=== PATIENT | female | born 1955 | race Caucasian/White ===

== ENCOUNTER → 2020-06-28 08:52 | Outpatient (BNVA) | payer MEDICAID, SELFPAY | PROVIDERS: Family Provider Nurse Practitioner Family; PCP Nurse Practitioner Family; Visit Provider Registered Nurse | DX: I10 Essential (primary) hypertension (principal); E11.9 Type 2 diabetes mellitus without complications; E78.5 Hyperlipidemia, unspecified; E11.40 Type 2 diabetes mellitus with diabetic neuropathy, unspecified; E55.9 Vitamin D deficiency, unspecified | CPT/HCPCS: 80053; 80061; 82306; 83036; 84443; 85025 ==

== ENCOUNTER → 2021-07-01 09:09 | Outpatient (BNVA) | payer MEDICAID, SELFPAY | PROVIDERS: Family Provider Nurse Practitioner Family; PCP Registered Nurse; Visit Provider Registered Nurse | DX: I10 Essential (primary) hypertension (principal); E11.40 Type 2 diabetes mellitus with diabetic neuropathy, unspecified; R63.0 Anorexia; Z71.3 Dietary counseling and surveillance | CPT/HCPCS: 80053; 80061; 83036; 84443; 85025 ==

== ENCOUNTER → 2022-06-24 08:56 | Outpatient (BNVA) | payer MEDICAID, SELFPAY | PROVIDERS: Family Provider Nurse Practitioner Family; PCP Registered Nurse; Visit Provider Registered Nurse | DX: I10 Essential (primary) hypertension (principal); E78.5 Hyperlipidemia, unspecified; E11.9 Type 2 diabetes mellitus without complications; Z91.14 Patient's other noncompliance with medication regimen; E11.40 Type 2 diabetes mellitus with diabetic neuropathy, unspecified; Z71.3 Dietary counseling and surveillance | CPT/HCPCS: 80053; 80061; 83036; 85025 ==

== ENCOUNTER → 2023-06-19 08:34 | Outpatient (BNVA) | payer MEDICAID, SELFPAY | PROVIDERS: Family Provider Nurse Practitioner Family; PCP Registered Nurse; Visit Provider Registered Nurse | DX: E11.9 Type 2 diabetes mellitus without complications (principal) | CPT/HCPCS: 80053; 80061; 83036; 85025 ==

== ENCOUNTER → 2024-07-15 08:33 | Outpatient (BNVA) | payer MEDICAID, SELFPAY | PROVIDERS: Family Provider Nurse Practitioner Family; PCP Registered Nurse; Visit Provider Registered Nurse | DX: E11.9 Type 2 diabetes mellitus without complications (principal) | CPT/HCPCS: 80053; 80061; 83036; 85025 ==

== ENCOUNTER → 2025-05-18 11:34 | Outpatient (BNVA) | payer MEDICAID, SELFPAY | PROVIDERS: PCP Registered Nurse; Visit Provider Registered Nurse | DX: I10 Essential (primary) hypertension (principal); E11.9 Type 2 diabetes mellitus without complications | CPT/HCPCS: 80053; 81000; 82607; 82728; 83036; 83550; 85025 ==

== ENCOUNTER → 2025-05-26 09:47 | Outpatient (BNVA) | payer MEDICAID, SELFPAY | PROVIDERS: PCP Registered Nurse; Visit Provider Registered Nurse | DX: I10 Essential (primary) hypertension (principal); E53.8 Deficiency of other specified B group vitamins; D64.9 Anemia, unspecified | CPT/HCPCS: 82607; 82728; 83550; 85025 ==

== ENCOUNTER 2025-06-01 12:32 | Outpatient (CLI) | payer MEDICAID, SELFPAY ==
[2025-06-01] MEDS: iohexol 350 mg/mL 500 mL Btl (per mL) PO (13:19)
--- NOTE | 2025-06-01 14:00 | CT_ITS ---
WS: [id number] CT ABDOMEN AND PELVIS WITH CONTRAST HISTORY: R14.0 - Abdominal distension (gaseous) TECHNIQUE: Imaging performed of the abdomen and pelvis with IV contrast. Single phase imaging of the abdomen. Coronal and sagittal reformats are submitted. All CT scans at [facility] use at least one of these dose optimization techniques: automated exposure control; mA and/or kV adjustment per patient size (includes targeted exams where dose is matched to clinical indication); or iterative reconstruction. IV CONTRAST: Omnipaque 350; 100 mL IV. Oral contrast: Yes. DLP: 304.19 mGy.cm COMPARISON: None available. Lower thorax: Lung bases are clear. Heart is normal size. No hiatal hernia. Liver/biliary system: Normal size with no intrahepatic dilatation. Gallbladder: Normal. No gallstones or wall thickening. No pericholecystic fluid. Pancreas: Normal size pancreas and pancreatic duct. No adjacent inflammation. Spleen: Normal size spleen. No mass or infarct. Adrenal glands: Normal. Right kidney: Normal size kidney with no obstruction. There are a few scattered too small to characterize cortical hypodensities. Left kidney: Normal size kidney with no obstruction. Small extrarenal pelvis. Aorta: Mild atherosclerosis with no aneurysm. Lymphadenopathy: None. Free fluid: None. GI tract: Mild gastric wall thickening. This may in part be due to under distention or gastritis. No small bowel obstruction. Marked diffuse constipation. The appendix is identified and contains some air. No evidence for appendicitis. Abdominal wall: Unremarkable abdominal wall. No hernia. Mild soft tissue anasarca. Pelvis: No free fluid or adenopathy within the pelvis. Urinary bladder is over distended. No free fluid in the pelvis. Bones: Advanced degenerative changes in the lumbar spine and facets. CT/CT abdomen pelvis w con* [id number] IMPRESSION: 1. No acute abdominal or pelvic abnormalities. 2. Marked diffuse constipation. No colitis or obstruction. 3. Mild gastric wall thickening may be due to gastritis or underdistention. 4. No ascites or adenopathy identified. 5. Mild soft tissue anasarca. 6. No renal obstruction.
== END 2025-06-01 12:33 | disposition home or self-care (01) ==
LOC: RAD 12:33
PROVIDERS: PCP Registered Nurse; Visit Provider Registered Nurse
DX: R14.0 Abdominal distension (gaseous) (principal); K59.00 Constipation, unspecified; K31.89 Other diseases of stomach and duodenum; R60.1 Generalized edema; N28.89 Other specified disorders of kidney and ureter; I70.0 Atherosclerosis of aorta; M47.896 Other spondylosis, lumbar region; M51.369 Other intervertebral disc degeneration, lumbar region without mention of lumbar back pain or lower extremity pain
CPT/HCPCS: 74177

== ENCOUNTER → 2025-06-06 09:59 | Outpatient (BNVA) | payer MEDICAID, SELFPAY | PROVIDERS: PCP Registered Nurse; Visit Provider Registered Nurse | DX: D64.9 Anemia, unspecified (principal) | CPT/HCPCS: 83550; 83880; 85025 ==

== ENCOUNTER → 2025-06-19 10:11 | Outpatient (BNVA) | payer MEDICAID, SELFPAY | PROVIDERS: PCP Registered Nurse; Visit Provider Student in an Organized Health Care Education/Training Program | DX: Z12.11 Encounter for screening for malignant neoplasm of colon (principal) | CPT/HCPCS: 99024; 99204 ==

== ENCOUNTER 2025-06-27 08:08 | Day surgery (SDC) | payer MEDICAID, SELFPAY ==
[2025-06-27 08:42] VITALS: BP 146/74; PULSE 68; RESP 18; TEMP 36.6; O2SAT 99; BMI 22.8
--- NOTE | 2025-06-27 10:21 | W.PM.OPSUD ---
Surgery/Procedure H&P Update DATE OF PROCEDURE: June 27, 2025 DATE H&P PERFORMED: 06/19/25 H&P UPDATE INFORMATION: I have reviewed H&P completed within last 30 days, I have examined patient prior to procedure, No changes to prior documentation and Risks and benefits of the procedure reviewed PLANNED PROCEDURE: Operation Date: 06/27/25 10:00 Proposed Procedures p Colonoscopy(Not Applicable) - Inocente Teague MD
--- NOTE | 2025-06-27 10:40 | ANES.PREANE2 ---
Pre-Anesthetic Assessment Height/Weight: Height 5 ft 10 in Weight 159 lb Temp Pulse Resp BP Pulse Ox O2 Del Method 97.9 F 68 18 146/74 99 Room Air 06/27/25 08:42 06/27/25 08:42 06/27/25 08:42 06/27/25 08:42 06/27/25 08:42 06/27/25 08:42 Preop Diagnosis: Screening colonoscopy Operation Date: 06/27/25 10:00 Proposed Procedures p Colonoscopy(Not Applicable) - Inocente Teague MD Was Beta Elva taken within 24 hours: N/A Was Clonidine taken within 24 hours: N/A Last intake: Intake Last Liquid Date 06/26/25 Last Liquid Time 20:00 Last Solid Date 06/25/25 Last Solid Time 15:00 Social Tobacco and No alcohol Exam alert, oriented x 3, clear to auscultation bilaterally and regular rate & rhythm Airway Submandibular: within normal limits Cervical ROM: within normal limits Mallampati: Class II Comments: Comments: Edentulous Anesthetic Plan ASA status: 3 Anesthesia: General Other: No prior issues with anesthesia Completed bowel prep History of hypertension on lisinopril and hydrochlorothiazide Current smoker Patient has chronic bronchitis, no current symptoms Plan for MAC anesthesia Medications/Allergies Home Medications ?Medication ?Instructions ?Recorded ?Confirmed ?Last Taken ?Type blood-glucose meter #1 ea 07/08/19 06/19/25 06/26/25 07:00 History diabetic supplies, miscellan. #100 ea 06/29/23 06/19/25 06/26/25 07:00 Rx blood-glucose meter (True Metrix #1 ea 10/31/24 06/19/25 06/26/25 07:00 Rx Air Glucose Meter) lancets 28 gauge (TRUEplus Lancets) #100 ea 10/31/24 06/19/25 06/26/25 07:00 Rx ferrous sulfate 325 mg (65 mg 325 mg PO DAILY 30 days #30 tabs 05/26/25 06/20/25 06/26/25 07:00 Rx iron) tablet (Feosol) hydrochlorothiazide 12.5 mg tablet 12.5 mg PO DAILY 30 days #30 tabs 05/26/25 06/20/25 06/26/25 07:00 Rx metformin 500 mg tablet 500 mg PO BID 90 days #180 tabs 06/06/25 06/20/25 06/26/25 07:00 Rx blood sugar diagnostic (True #100 ea 06/12/25 06/19/25 06/26/25 07:00 Rx Metrix Glucose Test Strip) lisinopril 5 mg tablet 5 mg PO DAILY 06/20/25 06/20/25 06/26/25 07:00 History Allergies Allergy/AdvReac Type Severity Reaction Status Date / Time No Known Allergies Allergy Verified 06/20/25 12:48 Current Medications Generic Name Dose Route Start Last Admin Trade Name Freq PRN Reason Stop Dose Admin Sodium Chloride 1,000 mls @ 15 mls/hr 06/27/25 08:18 06/27/25 08:49 Sodium Chloride 0.9% IV 06/28/25 08:17 15 mls/hr .Q24H PRN Administration COLONOSCOPY FLUIDS PFSH Anesthesia Medical History Neuropathy due to type 2 diabetes mellitus Diabetes mellitus Family History Brother Diabetes Mother Diabetes Father Alzheimer disease Social History Smoking and tobacco/nicotine status: never used tobacco/nicotine Alcohol intake: never Substance/Drug Use: never Adopted: No Caregiver/support person: No Lives independently: No Do you think of yourself as: Straight/Heterosexual
[2025-06-27 11:26] VITALS: BP 134/62; PULSE 63; RESP 16; TEMP 36.2; O2SAT 100
[2025-06-27 11:38] VITALS: BP 145/72; PULSE 62; RESP 16; O2SAT 100
--- NOTE | 2025-06-27 11:56 | ANE.PACU2 ---
Inpatient post-anesthesia follow up: Airway intact: Yes Vital signs: Temperature 97.2 F Pulse Rate 62 Respiratory Rate 16 Blood Pressure 145/72 Pulse Oximetry 100 Oxygen Delivery Me thod Room Air Oxygen Flow Rate Fraction of Inspir ed Oxygen Hydration adequate: Yes Nausea and vomiting: No Pain level: 1 Mental status: Baseline
== END 2025-06-27 11:56 | disposition home or self-care (01) ==
PROVIDERS: PCP Registered Nurse; Visit Provider Student in an Organized Health Care Education/Training Program
PROC: 0DJD8ZZ Inspection of Lower Intestinal Tract, Via Natural or Artificial Opening Endoscopic (ICD-10-PCS; CPT 45378; principal; 2025-06-27 10:00)
DX: Z12.11 Encounter for screening for malignant neoplasm of colon (principal); K57.30 Diverticulosis of large intestine without perforation or abscess without bleeding; E11.40 Type 2 diabetes mellitus with diabetic neuropathy, unspecified; Z79.84 Long term (current) use of oral hypoglycemic drugs; Z83.3 Family history of diabetes mellitus; I10 Essential (primary) hypertension; F17.200 Nicotine dependence, unspecified, uncomplicated; J42 Unspecified chronic bronchitis
CPT/HCPCS: 36416; 45378; 82962; J2704; J7030